=== PATIENT | male | born 1990 | race Asian ===

== ENCOUNTER 2016-11-25 03:23 | Emergency (ER) | payer OTHER ==
[2016-11-25 03:38] VITALS: RESP 16
[2016-11-25] MEDS ORDERED: IBUPROFEN 600 MG TAB PO ONE ×2 (03:39→04:01)
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
[2016-11-25 04:43] VITALS: BP 118/73; PULSE 76; TEMP 97.5; O2SAT 96
== END 2016-11-25 04:41 | disposition home or self-care (01) ==
DX: S93.401A Sprain of unspecified ligament of right ankle, initial encounter (principal); S80.211A Abrasion, right knee, initial encounter; V28.0XXA Motorcycle driver injured in noncollision transport accident in nontraffic accident, initial encounter; Y92.410 Unspecified street and highway as the place of occurrence of the external cause; Y99.8 Other external cause status; Y93.89 Activity, other specified
CPT/HCPCS: L4350

== ENCOUNTER 2017-12-24 05:10 | Emergency (ER) | payer OTHER ==
--- NOTE | 2017-12-24 05:26 | EDPHY ---
H & P Stated Complaint: L UPPER WISDOM TOOTH PULLED, BLEEDING CONTINUES Time Seen by Provider: 12/24/17 05:26 HPI/ROS: HPI CHIEF COMPLAINT: Left Upper Posterior Molar Extraction Bleeding. HISTORY OF PRESENT ILLNESS: 27-year-old male, otherwise healthy without any significant medical history he had his left upper wisdom tooth removed. This was done yesterday morning at 7:30 a.m.. He went sleep around noon he did wake up around 6:00 p.m. And had some bleeding. Bleeding has been on and off throughout the night. Decided come the emergency room as he could not get it to stop this morning. Denies fever significant pain. Denies any ingestion of anticoagulants. Denies any clotting disorder thrombophilia. Past Medical History: No significant medical history Past Surgical History: No significant surgical history Social History: Lives locally, denies drugs alcohol tobacco. Family History: Noncontributory ROS REVIEW OF SYSTEMS: 10 Systems were reviewed and negative with the exception of the elements mentioned in the history of present illness. Exam Constitutional triage nursing summary reviewed, vital signs reviewed, awake/ alert. Eyes normal conjunctivae and sclera, EOMI, PERRLA. HENT oropharynx: Left upper posterior molar extraction site is bleeding, normal inspection, atraumatic, moist mucus membranes, no epistaxis, neck supple / no meningismus, no raccoon eyes. Respiratory clear to auscultation bilaterally, normal breath sounds, no respiratory distress, no wheezing. Cardiovascular rate normal, regular rhythm, no murmur, no edema, distal pulses normal. Gastrointestinal soft, non-tender, no rebound, no guarding, normal bowel sounds, no distension, no pulsatile mass. Genitourinary no CVA tenderness. Musculoskeletal no midline vertebral tenderness, full range of motion, no calf swelling, no tenderness of extremities, no meningismus, good pulses, neurovascularly intact. Skin pink, warm, & dry, no rash, skin atraumatic. Neurologic awake, alert and oriented x 3, AAOx3, moves all 4 extremities equally, motor intact, sensory intact, CN II-XII intact, normal cerebellar, normal vision, normal speech. Psychiatric normal mood/affect. Heme/Lymph/Immune no lymphadenopathy. Differential Diagnosis: Includes but is not limited to in a particular order post extraction bleeding. Medical Decision Making: Plan for this patient will apply topical Topic TXA and re-eval. Re-evaluation: 07: Patient had T x-ray apply to the left upper wisdom tooth extraction site that was bleeding. After 20 min of direct pressure with a gauze soaked T6 a he has stopped bleeding. He would like to go home. Return precautions discussed with him. Source: Patient - Personal History Current Tetanus Diphtheria and Acellular Pertussis (TDAP): Unsure - Medical/Surgical History Hx Asthma: No Hx Chronic Respiratory Disease: No Hx Diabetes: No Hx Cardiac Disease: No Hx Renal Disease: No Hx Cirrhosis: No Hx Alcoholism: No Hx HIV/AIDS: No Hx Splenectomy or Spleen Trauma: No Other PMH: denies - Social History Smoking Status: Never smoked Constitutional: Initial Vital Signs Temperature (C) 36.8 C 12/24/17 05:15 Heart Rate 96 12/24/17 05:15 Respiratory Rate 16 12/24/17 05:15 Blood Pressure 95/59 L 12/24/17 05:15 O2 Sat (%) 93 12/24/17 05:15 O2 Delivery Mode Room Air Allergies/Adverse Reactions: No Known Allergies Allergy (Verified 12/24/17 05:16) Home Medications: Medication Instructions Recorded NK [No Known Home Meds] 05/13/14 Medical Decision Making - Data Points Medications Given: Discontinued Medications Tranexamic Acid (Cyklokapron) 500 mg TP EDNOW ONE Stop: 12/24/17 05:31 Last Admin: 12/24/17 05:38 Dose: 500 mg Departure - Departure Disposition: Home, Routine, Self-Care Clinical Impression: Gums, bleeding Condition: Good Instructions: Gingivostomatitis (ED) Additional Instructions: 1. Please follow up with her dentist 2. Return emergency room if you have worsening bleeding. Referrals: NONE *PRIMARY CARE P,. [Primary Care Provider] - As per Instructions
[2017-12-24] MEDS ORDERED: TRANEXAMIC ACID 1,000 MG/10 ML VIAL TP ONE (05:30)
[2017-12-24 07:16] VITALS: BP 118/76
== END 2017-12-24 07:13 | disposition home or self-care (01) ==
DX: K91.840 Postprocedural hemorrhage of a digestive system organ or structure following a digestive system procedure (principal); K06.8 Other specified disorders of gingiva and edentulous alveolar ridge